=== PATIENT | male | born 1985 | race Caucasian/White ===

== ENCOUNTER 2022-12-26 13:39 | Emergency (ER) | payer OTHER ==
[~2022-12-26] VITALS: Ht 172.7 cm; Wt 81.6 kg
== END 2022-12-26 15:57 | disposition home or self-care (01) ==
LOC: ED 13:39
DX: N13.2 Hydronephrosis with renal and ureteral calculous obstruction (principal); Z88.8 Allergy status to other drugs, medicaments and biological substances
CPT/HCPCS: 36415; 74176; 80053; 81001; 83690; 85025; 96374; 96375; 99284-25; J1885; J2405; J7030

== ENCOUNTER 2025-05-03 15:09 | Emergency (ER) | payer OTHER ==
[~2025-05-03] VITALS: Ht 172.7 cm; Wt 91.4 kg
[2025-05-03 15:43] LABS: BASOPHILS 0.7 % (0.2-1.2); EOSINOPHILS 3.3 % (0.8-7.0); HEMATOCRIT 43.6 % (40.1-51.0); HEMOGLOBIN 14.4 g/dL (13.7-17.5); LYMPHOCYTES 30.2 % (21.8-53.1); MCV 81.8 fL (79.0-92.2); MONOCYTES 10.8 % (5.3-12.2); NEUTROPHILS 54.6 % (34.0-67.9); PLATELET COUNT 281 K/uL (163-337); RBC 5.33 M/uL (4.63-6.08)
[2025-05-03 15:54] LABS: INR 0.97 (0.80-1.30); PROTIME 12.5 Sec (11.2-14.2)
[2025-05-03 16:07] LABS: ALBUMIN 3.7 g/dL (3.4-5.0); ALBUMIN/GLOBULIN RATIO 1.09 (1.1-2.4); ALKALINE PHOSPHATASE 106 U/L (46-116); ALT (SGPT) 33 U/L (14-59); ANION GAP 13.4 (7-21); AST (SGOT) 13 U/L (15-37); BILIRUBIN, TOTAL 0.3 mg/dL (0.2-1.0); BUN/CREATININE RATIO 12.96 (6.0-28.6); CARBON DIOXIDE 28 mmol/L (21-32); CHLORIDE 105 mmol/L (98-107); CREATININE, SERUM 1.08 mg/dL (0.70-1.30); GLOMERULAR FILTRATION RATE,EST 90 mL/min (>60); POTASSIUM 3.4 mmol/L (3.5-5.1); PROTEIN, TOTAL 7.1 g/dL (6.4-8.2); UREA NITROGEN 14 mg/dL (7-18)
[2025-05-03] MEDS ORDERED: SUMAtriptan succinate 50 MG TAB PO ONE (16:30)
[2025-05-03 16:54] VITALS: BP 135/95
--- NOTE | 2025-05-04 14:13 | EKG ---
[facility] [address] [facility] [place] [address] Signed Normal sinus rhythm Nonspecific T wave abnormality Abnormal ECG No previous ECGs available Confirmed by Rony Cortez MD ([id number]) on 05/04/2025 2:12:51 PM Electronically Signed By: RONY CORTEZ MD 05/04/25 1413 PATIENT NAME: FREEDOM VILLASENOR Missael Electrocardiogram DATE OF : 87 PHYSICIAN: RONY CORTEZ MD REPORT #: [id number] REPORT IS CONFIDENTIAL AND NOT TO BE RELEASED WITHOUT AUTHORIZATION
== END 2025-05-03 16:54 | disposition home or self-care (01) ==
LOC: ED 15:09
PROVIDERS: Family Medicine
DX: I10 Essential (primary) hypertension (principal); Z88.8 Allergy status to other drugs, medicaments and biological substances
CPT/HCPCS: 36415; 71045; 80053; 83735; 84484; 85025; 85610; 93005; 93010; 99284-25